=== PATIENT | male | born 1985 | race African-American/Black ===

== ENCOUNTER 2021-02-10 21:51 | Emergency (ER) | payer SELFPAY | END 2021-02-10 23:58 | disposition home or self-care (01) | LOC: CSHERS 21:51 | DX: L03.311 Cellulitis of abdominal wall (principal); E11.9 Type 2 diabetes mellitus without complications; E78.5 Hyperlipidemia, unspecified; I10 Essential (primary) hypertension; I25.10 Atherosclerotic heart disease of native coronary artery without angina pectoris; Z79.899 Other long term (current) drug therapy | CPT/HCPCS: 99282 ==

== ENCOUNTER 2021-11-27 22:55 | Inpatient (IN) | payer SELFPAY ==
[2021-11-27 23:48] LABS: #Basophils 0.1 10x3/uL (0.0-0.2); #Neutrophils 13.1 10x3/uL (1.5-8.4); %Basophils 0.3 % (0.0-2.0); %Lymphocytes 7.5 % (18.0-47.0); %Monocytes 6.3 % (0.0-10.0); %Neutrophils 85.4 % (40.0-75.0); Hemoglobin 8.2 g/dL (13.5-17.5); Mean Corpuscular HGB CONC 27.1 g/dL (32.0-36.0); Mean Platelet Volume 10.2 fl (7.4-10.4); Platelet Count 338 10x3/uL (150-450); RBC Distribution Width 18.4 % (11.5-14.5); Red Blood Cell (RBC) Count 4.81 10x6/uL (4.32-5.72); White Blood Cell (WBC) Count 15.3 10x3/uL (3.5-10.5)
[2021-11-28] LABS: ALT (SGPT) 13 U/L (8-55); AST (SGOT) 14 U/L (5-34); Albumin 3.9 g/dL (3.5-5.0); Alkaline Phosphatase 78 U/L (40-110); Anion Gap 16 mmol/L (10-20); BUN (Urea Nitrogen) 10 mg/dL (8.9-20.6); Bilirubin, Total 0.9 mg/dL (0.2-1.2); Calc. Creatinine Clearance 0 mL/min (70-130); Calcium 8.7 mg/dL (7.8-10.44); Carbon Dioxide 21 mmol/L (22-29); Chloride 103 mmol/L (98-107); Globulin 3.5 g/dL (2.4-3.5); Glucose 123 mg/dL (70-105); Potassium 3.9 mmol/L (3.5-5.1); Protein, Total 7.4 g/dL (6.0-8.3); Sodium 136 mmol/L (136-145)
[2021-11-28] MEDS ORDERED: Cefepime 2 GM VIAL ONE
[2021-11-28] MEDS ORDERED: Acetaminophen 325 MG TAB ONE
[2021-11-28 00:23] LABS: SARS-CoV-2 NAA Rapid Test Not Detected (NotDetected)
[2021-11-28 00:28] LABS: Platelet Morphology Comment Appears Adequate
[2021-11-28 00:30] LABS: Anisocytosis SLIGHT = 6-15 cells (100X) (0-5/hpf); Hypochromia SLIGHT = 6-15 cells (100X) (0-5/hpf); Macrocytosis SLIGHT = 6-15 cells (100X) (0-5/hpf); Microcytosis SLIGHT = 6-15 cells (100X) (0-5/hpf); Target Cells SLIGHT = 2-5 cells (100X) (0-1/hpf)
[2021-11-28 01:01] LABS: CKMB 1.6 ng/mL (0-6.6)
[2021-11-28 01:36] LABS: Bilirubin Neg (Negative); Blood, Urine Negative (Negative); Clarity Clear (Clear); Glucose, Urine (Dipstick) Normal (Negative); Ketone, Urine Negative (Negative); Leukocyte Negative (Negative); Nitrite Negative (Negative); Protein, Urine (Dipstick) 30 mg/dl (Neg-Trace); Specific Gravity, Urine 1.005 (1.002-1.036); Urobilinogen Normal mg/dL (Less than 2)
[2021-11-28 01:46] LABS: Bacteria/HPF None Seen HPF (None Seen); RBC/HPF 0-3 HPF (0-3); Squamous Epithelial 0-3 HPF (0-3); WBC/HPF 0-3 HPF (0-3)
[2021-11-28] MEDS ORDERED: Acetaminophen 325 MG TAB PO PRN (02:16)
[2021-11-28] MEDS ORDERED: HYDROcodone/Acetaminophen 5/325 mg Tablet PO PRN (02:16)
[2021-11-28] MEDS ORDERED: Senokot S 8.6-50 MG TAB PO PRN (02:16)
[2021-11-28] MEDS ORDERED: Calcium Carbonate 500 MG ChewTAB PO PRN (02:16)
[2021-11-28] MEDS ORDERED: Zolpidem Tartrate 5 MG TAB PO PRN (02:16)
[2021-11-28] MEDS ORDERED: Ondansetron PF 4 MG/2 ML Vial IVP PRN (02:16)
[2021-11-28] MEDS ORDERED: Enoxaparin Sodium 100 MG/ML SYRINGE ONE (02:24)
[2021-11-28 03:32] LABS: #Basophils 0.1 10x3/uL (0.0-0.2); #Eosinphils 0.1 10x3/uL (0.0-0.5); #Monocytes 1.3 10x3/uL (0.0-1.1); #Neutrophils 13.3 10x3/uL (1.5-8.4); %Basophils 0.3 % (0.0-2.0); %Eosinophils 0.8 % (0.0-6.0); %Lymphocytes 9.3 % (18.0-47.0); %Monocytes 8.1 % (0.0-10.0); %Neutrophils 80.7 % (40.0-75.0); Mean Corpuscular HGB CONC 28.1 g/dL (32.0-36.0); Mean Corpuscular Hemoglobin 17.6 pg (27.0-33.0); Mean Corpuscular Volume 62.8 fl (81.2-95.1); Mean Platelet Volume 9.4 fl (7.4-10.4); Platelet Count 312 10x3/uL (150-450); RBC Distribution Width 18.6 % (11.5-14.5); Red Blood Cell (RBC) Count 4.54 10x6/uL (4.32-5.72); White Blood Cell (WBC) Count 16.5 10x3/uL (3.5-10.5)
[2021-11-28 03:41] LABS: Anion Gap 15 mmol/L (10-20); BUN (Urea Nitrogen) 10 mg/dL (8.9-20.6); Calc. Creatinine Clearance 0 mL/min (70-130); Calcium 8.6 mg/dL (7.8-10.44); Carbon Dioxide 21 mmol/L (22-29); Chloride 104 mmol/L (98-107); Glucose 107 mg/dL (70-105); Potassium 3.6 mmol/L (3.5-5.1); Sodium 136 mmol/L (136-145)
[2021-11-28 03:41] LABS: CRP (Inflammatory) 5.38 mg/dL (= or < 0.5)
[2021-11-28] MEDS ORDERED: Nitroglycerin 2% Ointment 1 INCH/1 GM Packet TOP SCH (04:00)
[2021-11-28] MEDS ORDERED: Furosemide 20 MG/2 ML VIAL SLOW IVP SCH ×2 (04:00→08:30)
[2021-11-28 04:02] LABS: Platelet Morphology Comment Appears Adequate; Tear Drops SLIGHT = 2-5 cells (100X) (0-1/hpf)
[2021-11-28 04:03] LABS: Anisocytosis SLIGHT = 6-15 cells (100X) (0-5/hpf); Elliptocytes SLIGHT = 2-5 cells (100X) (0-1/hpf); Ferritin 21.94 ng/mL (22-322); Hypochromia MODERATE=16-30 cells (100X) (0-5/hpf); Macrocytosis SLIGHT = 6-15 cells (100X) (0-5/hpf); Microcytosis SLIGHT = 6-15 cells (100X) (0-5/hpf); Schistocytes SLIGHT = 2-5 cells (100X) (0-1/hpf); Target Cells SLIGHT = 2-5 cells (100X) (0-1/hpf); Thyroid Stimulating Hormone 0.9709 uIU/mL (0.35-4.94)
[2021-11-28 04:05] LABS: CKMB 1.2 ng/mL (0-6.6)
[2021-11-28 09:23] LABS: CKMB 1.2 ng/mL (0-6.6)
[2021-11-28] MEDS: Aspirin 81 mg Enteric Coated Tablet PO SCH (09:26)
[2021-11-28] MEDS: Lisinopril 10 MG TAB PO SCH (09:26)
[2021-11-28] MEDS: Carvedilol 25 MG TAB PO SCH ×2 (09:26→16:49)
[2021-11-28] MEDS: Furosemide 20 MG TAB PO SCH (09:26)
[2021-11-28] MEDS: Enoxaparin Sodium 40 MG/0.4 ML SYRINGE SC SCH (09:26)
[2021-11-28] MEDS ORDERED: Ferrous Sulfate 325 MG TAB PO SCH (09:30)
[2021-11-28] MEDS: Ferrous Sulfate 325 MG TAB PO SCH (16:49)
[2021-11-28] MEDS ORDERED: Atorvastatin Calcium 20 MG TAB PO SCH (21:00)
[2021-11-29 07:35] VITALS: BMI 39.5
[2021-11-29] MEDS: Ferrous Sulfate 325 MG TAB PO SCH (08:40)
[2021-11-29] MEDS: Aspirin 81 mg Enteric Coated Tablet PO SCH (08:40)
[2021-11-29] MEDS: Furosemide 20 MG TAB PO SCH (08:40)
[2021-11-29] MEDS: Lisinopril 10 MG TAB PO SCH (08:40)
[2021-11-29] MEDS: Enoxaparin Sodium 40 MG/0.4 ML SYRINGE SC SCH (08:40)
[2021-11-29] MEDS: Carvedilol 25 MG TAB PO SCH (08:40)
[2021-11-29 09:12] LABS: #Basophils 0.1 10x3/uL (0.0-0.2); #Eosinphils 0.1 10x3/uL (0.0-0.5); #Monocytes 1.3 10x3/uL (0.0-1.1); #Neutrophils 13.7 10x3/uL (1.5-8.4); %Basophils 0.3 % (0.0-2.0); %Eosinophils 0.7 % (0.0-6.0); %Lymphocytes 7.7 % (18.0-47.0); %Monocytes 7.7 % (0.0-10.0); %Neutrophils 83.1 % (40.0-75.0); Hemoglobin 7.7 g/dL (13.5-17.5); Mean Corpuscular HGB CONC 27.1 g/dL (32.0-36.0); Mean Corpuscular Hemoglobin 17.2 pg (27.0-33.0); Mean Corpuscular Volume 63.4 fl (81.2-95.1); Mean Platelet Volume 10.1 fl (7.4-10.4); Platelet Count 302 10x3/uL (150-450); RBC Distribution Width 18.8 % (11.5-14.5); Red Blood Cell (RBC) Count 4.48 10x6/uL (4.32-5.72); White Blood Cell (WBC) Count 16.5 10x3/uL (3.5-10.5)
[2021-11-29 09:26] LABS: Anion Gap 13 mmol/L (10-20); BUN (Urea Nitrogen) 17 mg/dL (8.9-20.6); Calc. Creatinine Clearance 118 mL/min (70-130); Calcium 8.9 mg/dL (7.8-10.44); Carbon Dioxide 24 mmol/L (22-29); Chloride 103 mmol/L (98-107); Glucose 113 mg/dL (70-105); Potassium 3.7 mmol/L (3.5-5.1); Sodium 136 mmol/L (136-145)
[2021-11-29 11:17] LABS: Anisocytosis SLIGHT = 6-15 cells (100X) (0-5/hpf)
[2021-11-29 11:18] LABS: Hypochromia SLIGHT = 6-15 cells (100X) (0-5/hpf); Large Platelets SLIGHT; Macrocytosis SLIGHT = 6-15 cells (100X) (0-5/hpf); Microcytosis SLIGHT = 6-15 cells (100X) (0-5/hpf); Platelet Morphology Comment Appears Adequate; Polychromasia SLIGHT = 2-3 cells (100X) (0-2/hpf); Reflex for Review?? YES
[2021-11-29 11:39] VITALS: BP 90/50; TEMP 96.9
== END 2021-11-29 14:11 | disposition home or self-care (01) | DRG 871 ==
LOC: CSHERS 22:55 → CSHERHOLD 11-28 03:00 → CSHTELE 11-28 07:48
PROVIDERS: ADMIT Student in an Organized Health Care Education/Training Program; ATTEND Hospitalist
DX: A41.9 Sepsis, unspecified organism (principal); I50.23 Acute on chronic systolic (congestive) heart failure; I42.8 Other cardiomyopathies; I13.0 Hypertensive heart and chronic kidney disease with heart failure and stage 1 through stage 4 chronic kidney disease, or unspecified chronic kidney disease; E78.5 Hyperlipidemia, unspecified; N18.2 Chronic kidney disease, stage 2 (mild); Z20.822 Contact with and (suspected) exposure to COVID-19; I16.0 Hypertensive urgency; D63.1 Anemia in chronic kidney disease; D50.9 Iron deficiency anemia, unspecified; E66.9 Obesity, unspecified; Z68.39 Body mass index [BMI] 39.0-39.9, adult; Z88.8 Allergy status to other drugs, medicaments and biological substances
CPT/HCPCS: 36415; 71045; 80048; 80053; 81003; 81015; 82553; 82728; 83540; 83550; 83605; 83880; 84145; 84443; 84484; 85025; 85060; 85652; 86140; 87040; 87081; 87086; 87430; 87633; 93005; 93306; 93970; 96372; 96374; 96375; J0692; J1650; J1940; J1956; J3370

== ENCOUNTER 2022-02-06 12:23 | Inpatient (IN) | payer SELFPAY ==
[2022-02-06] MEDS ORDERED: Ketorolac Tromethamine 30 MG/ML VIAL ONE (13:40)
[2022-02-06 13:53] LABS: #Monocytes 1.4 10x3/uL (0.0-1.1); #Neutrophils 6.8 10x3/uL (1.5-8.4); %Basophils 0.2 % (0.0-2.0); %Eosinophils 0.3 % (0.0-6.0); %Lymphocytes 14.1 % (18.0-47.0); %Monocytes 14.3 % (0.0-10.0); %Neutrophils 70.8 % (40.0-75.0); Mean Corpuscular HGB CONC 27.8 g/dL (32.0-36.0); Mean Corpuscular Hemoglobin 17.4 pg (27.0-33.0); Mean Corpuscular Volume 62.7 fl (81.2-95.1); Mean Platelet Volume 9.3 fl (7.4-10.4); Platelet Count 335 10x3/uL (150-450); RBC Distribution Width 17.5 % (11.5-14.5); Red Blood Cell (RBC) Count 4.02 10x6/uL (4.32-5.72); White Blood Cell (WBC) Count 9.5 10x3/uL (3.5-10.5)
[2022-02-06 14:02] LABS: ALT (SGPT) 20 U/L (8-55); AST (SGOT) 26 U/L (5-34); Albumin 3.6 g/dL (3.5-5.0); Alkaline Phosphatase 64 U/L (40-110); Anion Gap 14 mmol/L (10-20); BUN (Urea Nitrogen) 21 mg/dL (8.9-20.6); Bilirubin, Total 0.5 mg/dL (0.2-1.2); Calc. Creatinine Clearance 0 mL/min (70-130); Calcium 9.1 mg/dL (7.8-10.44); Carbon Dioxide 22 mmol/L (22-29); Chloride 101 mmol/L (98-107); Estimated GFR 44; Globulin 4.7 g/dL (2.4-3.5); Glucose 163 mg/dL (70-105); Lipase 65 U/L (8-78); Protein, Total 8.3 g/dL (6.0-8.3); Sodium 133 mmol/L (136-145)
[2022-02-06] MEDS ORDERED: Piperacillin/Tazobactam 4.5 GM VIAL ONE (17:35)
[2022-02-06] MEDS ORDERED: Pantoprazole 40 MG VIAL ONE (19:08)
[2022-02-06 20:33] LABS: SARS-CoV-2 NAA Rapid Test Not Detected (NotDetected)
[2022-02-06 20:53] VITALS: BMI 40.6
[2022-02-06] MEDS ORDERED: Ondansetron PF 4 MG/2 ML Vial IVP PRN (21:49)
[2022-02-06] MEDS ORDERED: Sodium Chloride 0.9% 1,000 ML IV SCH (22:00)
[2022-02-06] MEDS ORDERED: Potassium Chloride 20 MEQ in Lactated Ringer's 1,000 ML IV SCH (22:15)
[2022-02-06] MEDS ORDERED: Morphine 4 MG/ML VIAL SLOW IVP PRN (22:15)
[2022-02-06] MEDS ORDERED: HYDROcodone/Acetaminophen 7.5/325 mg Tablet PO PRN (22:15)
[2022-02-06] MEDS ORDERED: Ondansetron ODT 4 MG TAB PO PRN (22:15)
[2022-02-06 22:37] LABS: Iron 10 ug/dL (65-175); Iron Binding Capacity, Total 336 mcg/dL (261-462)
[2022-02-06] MEDS: Piperacillin/Tazobactam 3.375 GM in Sodium Chloride 0.9% 100 ML IVPB SCH (23:14)
[2022-02-06] MEDS: Acetaminophen 325 MG TAB PO PRN (23:14)
[2022-02-07 05:36] LABS: #Eosinphils 0.1 10x3/uL (0.0-0.5); #Neutrophils 5.8 10x3/uL (1.5-8.4); %Basophils 0.4 % (0.0-2.0); %Eosinophils 1.1 % (0.0-6.0); %Monocytes 11.6 % (0.0-10.0); %Neutrophils 68.5 % (40.0-75.0); Mean Corpuscular HGB CONC 27.1 g/dL (32.0-36.0); Mean Corpuscular Hemoglobin 18.2 pg (27.0-33.0); Mean Corpuscular Volume 67.2 fl (81.2-95.1); Platelet Count 307 10x3/uL (150-450); RBC Distribution Width 19.7 % (11.5-14.5); Red Blood Cell (RBC) Count 3.84 10x6/uL (4.32-5.72); White Blood Cell (WBC) Count 8.5 10x3/uL (3.5-10.5)
[2022-02-07 05:40] LABS: Anion Gap 12 mmol/L (10-20); BUN (Urea Nitrogen) 25 mg/dL (8.9-20.6); Calc. Creatinine Clearance 68 mL/min (70-130); Calcium 8.3 mg/dL (7.8-10.44); Carbon Dioxide 19 mmol/L (22-29); Chloride 109 mmol/L (98-107); Estimated GFR 36; Glucose 132 mg/dL (70-105); Magnesium 2.1 mg/dL (1.6-2.6); Potassium 4.3 mmol/L (3.5-5.1); Sodium 136 mmol/L (136-145)
[2022-02-07] MEDS ORDERED: Pantoprazole 40 MG VIAL IVP SCH (06:00)
[2022-02-07 06:15] LABS: Anisocytosis SLIGHT = 6-15 cells (100X) (0-5/hpf); Hypochromia MODERATE=16-30 cells (100X) (0-5/hpf); Microcytosis MODERATE=15-30 cells (100X) (0-5/hpf); Poikilocytosis SLIGHT = 6-15 cells (100X) (0-5/hpf)
[2022-02-07 06:16] LABS: Platelet Morphology Comment Appears Adequate
[2022-02-07] MEDS: Piperacillin/Tazobactam 3.375 GM in Sodium Chloride 0.9% 100 ML IVPB SCH ×3 (06:18→21:48)
[2022-02-07] MEDS: Ferrous Sulfate 325 MG TAB PO SCH ×2 (09:13→16:51)
[2022-02-07] MEDS: Lisinopril 20 MG TAB PO SCH (09:13)
[2022-02-07] MEDS: Carvedilol 25 MG TAB PO SCH (09:13)
[2022-02-07] MEDS: Furosemide 20 MG TAB PO SCH (09:13)
[2022-02-07] MEDS: Aspirin 81 mg Enteric Coated Tablet PO SCH (09:14)
[2022-02-07 15:10] LABS: Hemoglobin 7.1 g/dL (13.5-17.5)
[2022-02-07] MEDS ORDERED: GoLYTELY 4,000 ml Bottle PO SCH (20:00)
[2022-02-07] MEDS: Atorvastatin Calcium 20 MG TAB PO SCH (20:17)
[2022-02-08] MEDS: Piperacillin/Tazobactam 3.375 GM in Sodium Chloride 0.9% 100 ML IVPB SCH ×3 (06:19→20:51)
[2022-02-08] MEDS: Ferrous Sulfate 325 MG TAB PO SCH ×2 (08:21→17:55)
[2022-02-08] MEDS: Lisinopril 20 MG TAB PO SCH (08:21)
[2022-02-08] MEDS: Carvedilol 25 MG TAB PO SCH (08:21)
[2022-02-08] MEDS: Aspirin 81 mg Enteric Coated Tablet PO SCH (08:22)
[2022-02-08] MEDS: Furosemide 20 MG TAB PO SCH (08:22)
[2022-02-08] MEDS: Acetaminophen 325 MG TAB PO PRN (20:52)
[2022-02-08] MEDS: Atorvastatin Calcium 20 MG TAB PO SCH (21:00)
[2022-02-09] MEDS: Piperacillin/Tazobactam 3.375 GM in Sodium Chloride 0.9% 100 ML IVPB SCH (06:10)
[2022-02-09] MEDS ORDERED: Sodium Chloride 0.9% 1,000 ML IV SCH (08:45)
[2022-02-09 09:10] LABS: #Basophils 0.1 10x3/uL (0.0-0.2); #Eosinphils 0.2 10x3/uL (0.0-0.5); #Monocytes 0.5 10x3/uL (0.0-1.1); #Neutrophils 5.8 10x3/uL (1.5-8.4); %Basophils 0.9 % (0.0-2.0); %Eosinophils 2.1 % (0.0-6.0); %Monocytes 6.4 % (0.0-10.0); %Neutrophils 71.1 % (40.0-75.0); Hemoglobin 7.6 g/dL (13.5-17.5); Mean Corpuscular HGB CONC 27.2 g/dL (32.0-36.0); Mean Corpuscular Hemoglobin 18.1 pg (27.0-33.0); Mean Corpuscular Volume 66.6 fl (81.2-95.1); Mean Platelet Volume 9.8 fl (7.4-10.4); Platelet Count 351 10x3/uL (150-450); RBC Distribution Width 19.9 % (11.5-14.5); Red Blood Cell (RBC) Count 4.19 10x6/uL (4.32-5.72); White Blood Cell (WBC) Count 8.2 10x3/uL (3.5-10.5)
[2022-02-09] MEDS: Furosemide 20 MG TAB PO SCH (09:18)
[2022-02-09] MEDS: Carvedilol 25 MG TAB PO SCH (09:18)
[2022-02-09] MEDS: Ferrous Sulfate 325 MG TAB PO SCH ×2 (09:18→17:05)
[2022-02-09] MEDS: Aspirin 81 mg Enteric Coated Tablet PO SCH (09:18)
[2022-02-09 09:30] LABS: Anion Gap 12 mmol/L (10-20); BUN (Urea Nitrogen) 11 mg/dL (8.9-20.6); Calc. Creatinine Clearance 109 mL/min (70-130); Calcium 9.1 mg/dL (7.8-10.44); Carbon Dioxide 20 mmol/L (22-29); Chloride 108 mmol/L (98-107); Estimated GFR 64; Glucose 107 mg/dL (70-105); Potassium 4.1 mmol/L (3.5-5.1); Sodium 136 mmol/L (136-145)
[2022-02-09 09:32] LABS: Platelet Morphology Comment Appears Adequate
[2022-02-09 09:34] LABS: Anisocytosis SLIGHT = 6-15 cells (100X) (0-5/hpf); Basophilic Stippling SLIGHT = 1-2 cells (100X) (None Seen); Elliptocytes SLIGHT = 2-5 cells (100X) (0-1/hpf); Hypochromia SLIGHT = 6-15 cells (100X) (0-5/hpf); Macrocytosis SLIGHT = 6-15 cells (100X) (0-5/hpf); Microcytosis SLIGHT = 6-15 cells (100X) (0-5/hpf); Polychromasia SLIGHT = 2-3 cells (100X) (0-2/hpf); Schistocytes SLIGHT = 2-5 cells (100X) (0-1/hpf); Target Cells SLIGHT = 2-5 cells (100X) (0-1/hpf)
[2022-02-09 16:14] LABS: Hemoglobin A2 2.2 % (1.8-3.2); Hemoglobin F 0 % (0.0-2.0)
[2022-02-09] MEDS: Acetaminophen 325 MG TAB PO PRN (21:31)
[2022-02-09] MEDS: Atorvastatin Calcium 20 MG TAB PO SCH (21:31)
[2022-02-10 04:56] LABS: #Basophils 0.1 10x3/uL (0.0-0.2); #Eosinphils 0.3 10x3/uL (0.0-0.5); #Monocytes 0.9 10x3/uL (0.0-1.1); #Neutrophils 6.9 10x3/uL (1.5-8.4); %Basophils 0.5 % (0.0-2.0); %Eosinophils 2.8 % (0.0-6.0); %Lymphocytes 19.9 % (18.0-47.0); %Monocytes 8.6 % (0.0-10.0); %Neutrophils 67.6 % (40.0-75.0); Hemoglobin 7.4 g/dL (13.5-17.5); Mean Corpuscular HGB CONC 28.1 g/dL (32.0-36.0); Mean Corpuscular Hemoglobin 18.2 pg (27.0-33.0); Mean Corpuscular Volume 64.8 fl (81.2-95.1); Platelet Count 376 10x3/uL (150-450); RBC Distribution Width 20.1 % (11.5-14.5); Red Blood Cell (RBC) Count 4.06 10x6/uL (4.32-5.72); White Blood Cell (WBC) Count 10.1 10x3/uL (3.5-10.5)
[2022-02-10 04:57] LABS: Anion Gap 14 mmol/L (10-20); BUN (Urea Nitrogen) 7 mg/dL (8.9-20.6); Calc. Creatinine Clearance 125 mL/min (70-130); Calcium 8.9 mg/dL (7.8-10.44); Carbon Dioxide 20 mmol/L (22-29); Chloride 108 mmol/L (98-107); Estimated GFR 75; Glucose 80 mg/dL (70-105); Potassium 3.9 mmol/L (3.5-5.1); Sodium 138 mmol/L (136-145)
[2022-02-10 06:03] LABS: Anisocytosis SLIGHT = 6-15 cells (100X) (0-5/hpf); Hypochromia SLIGHT = 6-15 cells (100X) (0-5/hpf); Microcytosis SLIGHT = 6-15 cells (100X) (0-5/hpf); Polychromasia SLIGHT = 2-3 cells (100X) (0-2/hpf); Target Cells SLIGHT = 2-5 cells (100X) (0-1/hpf)
[2022-02-10 06:04] LABS: Platelet Morphology Comment Appears Adequate
[2022-02-10] MEDS: Ferrous Sulfate 325 MG TAB PO SCH ×2 (09:29→18:36)
[2022-02-10] MEDS: Aspirin 81 mg Enteric Coated Tablet PO SCH (09:29)
[2022-02-10] MEDS: Furosemide 20 MG TAB PO SCH (09:29)
[2022-02-10] MEDS: Carvedilol 25 MG TAB PO SCH (09:29)
[2022-02-10] MEDS: Lisinopril 20 MG TAB PO SCH (09:30)
[2022-02-10] MEDS ORDERED: Iron, Sodium Ferric Gluconate 125 MG in Sodium Chloride 0.9% 100 ML IVPB SCH (09:45)
[2022-02-10] MEDS: Neomycin 500 mg Tablet PO SCH ×3 (15:50→20:14)
[2022-02-10] MEDS: Erythromycin Base 250 MG TAB PO SCH ×3 (15:51→20:14)
[2022-02-10] MEDS: Atorvastatin Calcium 20 MG TAB PO SCH (20:14)
[2022-02-11 00:18] VITALS: BP 146/99; TEMP 97.4
== END 2022-02-11 01:00 | disposition short-term general hospital (02) | DRG 392 ==
LOC: CSHERS 12:23 → CSHTELE 20:44
PROVIDERS: ADMIT Family Medicine; ATTEND Internal Medicine
PROC: 30233N1 Transfusion of Nonautologous Red Blood Cells into Peripheral Vein, Percutaneous Approach (ICD-10-PCS; principal; 2022-02-06)
PROC: 0DB98ZX Excision of Duodenum, Via Natural or Artificial Opening Endoscopic, Diagnostic (ICD-10-PCS; 2022-02-08)
PROC: 0DB68ZX Excision of Stomach, Via Natural or Artificial Opening Endoscopic, Diagnostic (ICD-10-PCS; 2022-02-08)
PROC: 0DBM8ZX Excision of Descending Colon, Via Natural or Artificial Opening Endoscopic, Diagnostic (ICD-10-PCS; 2022-02-08)
DX: K52.9 Noninfective gastroenteritis and colitis, unspecified (principal); I50.42 Chronic combined systolic (congestive) and diastolic (congestive) heart failure; Z68.41 Body mass index [BMI] 40.0-44.9, adult; I42.8 Other cardiomyopathies; I13.0 Hypertensive heart and chronic kidney disease with heart failure and stage 1 through stage 4 chronic kidney disease, or unspecified chronic kidney disease; Z20.822 Contact with and (suspected) exposure to COVID-19; D50.9 Iron deficiency anemia, unspecified; K29.70 Gastritis, unspecified, without bleeding; E66.01 Morbid (severe) obesity due to excess calories; N18.9 Chronic kidney disease, unspecified; K63.89 Other specified diseases of intestine; E78.5 Hyperlipidemia, unspecified; Z79.82 Long term (current) use of aspirin; Z79.899 Other long term (current) drug therapy; Z82.49 Family history of ischemic heart disease and other diseases of the circulatory system
CPT/HCPCS: 36415; 36430; 74176; 80048; 80053; 82274; 82378; 82728; 83021; 83540; 83550; 83605; 83690; 83735; 85025; 86850; 86900; 86901; 87040; 88305; 88342; 93005; 93010; 96361; 96374; 96375; C9113; J1885; J2543; J2916; J3490; J7050; P9016; Q0162; U0002

== ENCOUNTER 2022-02-28 13:37 | Outpatient (CLI) | payer SELFPAY | END 2022-02-28 13:38 | disposition home or self-care (01) | LOC: CSHWCC 13:37 | PROVIDERS: ATTEND Nurse Practitioner Family | DX: L89.323 Pressure ulcer of left buttock, stage 3 (principal); T81.89XD Other complications of procedures, not elsewhere classified, subsequent encounter | CPT/HCPCS: 97605; 99203; G0463 ==

== ENCOUNTER 2022-03-02 09:35 | Outpatient (CLI) | payer SELFPAY | END 2022-03-02 09:36 | disposition home or self-care (01) | LOC: CSHWCC 09:35 | PROVIDERS: ATTEND Preventive Medicine Undersea and Hyperbaric Medicine | DX: T81.89XD Other complications of procedures, not elsewhere classified, subsequent encounter (principal); L89.323 Pressure ulcer of left buttock, stage 3 | CPT/HCPCS: 97605 ==

== ENCOUNTER 2022-03-06 08:59 | Outpatient (CLI) | payer SELFPAY | END 2022-03-06 09:00 | disposition home or self-care (01) | LOC: CSHWCC 08:59 | PROVIDERS: ATTEND Preventive Medicine Undersea and Hyperbaric Medicine | DX: L89.323 Pressure ulcer of left buttock, stage 3 (principal); T81.89XD Other complications of procedures, not elsewhere classified, subsequent encounter | CPT/HCPCS: 97605 ==

== ENCOUNTER 2022-03-09 09:54 | Outpatient (CLI) | payer OTHER | END 2022-03-09 09:55 | disposition home or self-care (01) | LOC: CSHWCC 09:54 | PROVIDERS: ATTEND Nurse Practitioner Family | DX: T81.89XD Other complications of procedures, not elsewhere classified, subsequent encounter (principal); L89.323 Pressure ulcer of left buttock, stage 3 ==

== ENCOUNTER 2022-03-13 08:51 | Outpatient (CLI) | payer OTHER | END 2022-03-13 08:52 | disposition home or self-care (01) | LOC: CSHWCC 08:51 | PROVIDERS: ATTEND Nurse Practitioner Family | DX: T81.89XD Other complications of procedures, not elsewhere classified, subsequent encounter (principal); L89.323 Pressure ulcer of left buttock, stage 3 | CPT/HCPCS: 97605 ==

== ENCOUNTER 2022-03-16 09:04 | Outpatient (CLI) | payer OTHER | END 2022-03-16 09:05 | disposition home or self-care (01) | LOC: CSHWCC 09:04 | PROVIDERS: ATTEND Preventive Medicine Undersea and Hyperbaric Medicine | DX: L89.323 Pressure ulcer of left buttock, stage 3 (principal); T81.89XD Other complications of procedures, not elsewhere classified, subsequent encounter | CPT/HCPCS: 97605 ==

== ENCOUNTER 2022-03-20 08:27 | Outpatient (CLI) | payer OTHER | END 2022-03-20 08:28 | disposition home or self-care (01) | LOC: CSHWCC 08:27 | PROVIDERS: ATTEND Preventive Medicine Undersea and Hyperbaric Medicine | DX: L89.323 Pressure ulcer of left buttock, stage 3 (principal); T81.89XD Other complications of procedures, not elsewhere classified, subsequent encounter | CPT/HCPCS: 97605 ==

== ENCOUNTER 2022-03-23 09:01 | Outpatient (CLI) | payer OTHER | END 2022-03-23 09:02 | disposition home or self-care (01) | LOC: CSHWCC 09:01 | PROVIDERS: ATTEND Preventive Medicine Undersea and Hyperbaric Medicine | DX: L89.323 Pressure ulcer of left buttock, stage 3 (principal); T81.89XD Other complications of procedures, not elsewhere classified, subsequent encounter | CPT/HCPCS: 97605 ==

== ENCOUNTER 2022-03-29 08:46 | Outpatient (CLI) | payer OTHER | END 2022-03-29 08:47 | disposition home or self-care (01) | LOC: CSHWCC 08:46 | PROVIDERS: ATTEND Preventive Medicine Undersea and Hyperbaric Medicine | DX: T81.89XD Other complications of procedures, not elsewhere classified, subsequent encounter (principal); L89.323 Pressure ulcer of left buttock, stage 3 | CPT/HCPCS: 97605; 99212; G0463 ==

== ENCOUNTER 2022-04-03 11:23 | Outpatient (CLI) | payer OTHER | END 2022-04-03 11:24 | disposition home or self-care (01) | LOC: CSHWCC 11:23 | PROVIDERS: ATTEND Preventive Medicine Undersea and Hyperbaric Medicine | DX: L89.323 Pressure ulcer of left buttock, stage 3 (principal); T81.89XD Other complications of procedures, not elsewhere classified, subsequent encounter | CPT/HCPCS: 97605 ==

== ENCOUNTER 2022-04-06 10:00 | Outpatient (CLI) | payer OTHER | END 2022-04-06 10:01 | disposition home or self-care (01) | LOC: CSHWCC 10:00 | PROVIDERS: ATTEND Preventive Medicine Undersea and Hyperbaric Medicine | DX: L89.323 Pressure ulcer of left buttock, stage 3 (principal); T81.89XD Other complications of procedures, not elsewhere classified, subsequent encounter ==

== ENCOUNTER 2022-04-09 08:41 | Outpatient (CLI) | payer OTHER | END 2022-04-09 08:42 | disposition home or self-care (01) | LOC: CSHWCC 08:41 | PROVIDERS: ATTEND Preventive Medicine Undersea and Hyperbaric Medicine | DX: T81.89XD Other complications of procedures, not elsewhere classified, subsequent encounter (principal) | CPT/HCPCS: 99213; G0463 ==

== ENCOUNTER 2022-04-16 10:02 | Outpatient (CLI) | payer OTHER | END 2022-04-16 10:03 | disposition home or self-care (01) | LOC: CSHWCC 10:02 | PROVIDERS: ATTEND Preventive Medicine Undersea and Hyperbaric Medicine | DX: T81.89XD Other complications of procedures, not elsewhere classified, subsequent encounter (principal) | CPT/HCPCS: 99212; G0463 ==

== ENCOUNTER 2022-04-30 09:27 | Outpatient (CLI) | payer OTHER, SELFPAY | END 2022-04-30 09:28 | disposition home or self-care (01) | LOC: CSHWCC 09:27 | PROVIDERS: ATTEND Nurse Practitioner Family | DX: T81.89XD Other complications of procedures, not elsewhere classified, subsequent encounter (principal) | CPT/HCPCS: 99212; G0463 ==

== ENCOUNTER 2023-05-09 16:25 | Inpatient (IN) | payer BC, OTHER ==
[2023-05-09 18:02] LABS: #Eosinphils 0.1 10x3/uL (0.0-0.5); #Monocytes 0.4 10x3/uL (0.0-1.1); #Neutrophils 4.5 10x3/uL (1.5-8.4); %Basophils 0.6 % (0.0-2.0); %Eosinophils 1.2 % (0.0-6.0); %Lymphocytes 23.3 % (18.0-47.0); %Monocytes 6.3 % (0.0-10.0); %Neutrophils 68.3 % (40.0-75.0); Hematocrit 38.6 % (38.8-50.0); Hemoglobin 11.8 g/dL (13.5-17.5); Mean Corpuscular HGB CONC 30.6 g/dL (32.0-36.0); Mean Corpuscular Hemoglobin 22.8 pg (27.0-33.0); Mean Corpuscular Volume 74.7 fl (81.2-95.1); Mean Platelet Volume 10.1 fl (7.4-10.4); Platelet Count 307 10x3/uL (150-450); RBC Distribution Width 17.8 % (11.5-14.5); Red Blood Cell (RBC) Count 5.17 10x6/uL (4.32-5.72); White Blood Cell (WBC) Count 6.5 10x3/uL (3.5-10.5)
[2023-05-09 18:09] LABS: ALT (SGPT) 17 U/L (8-55); AST (SGOT) 20 U/L (5-34); Albumin 3.1 g/dL (3.5-5.0); Alkaline Phosphatase 69 U/L (40-110); Anion Gap 13 mmol/L (10-20); BUN (Urea Nitrogen) 21 mg/dL (8.9-20.6); Bilirubin, Total 0.6 mg/dL (0.2-1.2); Calc. Creatinine Clearance 0 mL/min (70-130); Calcium 8.2 mg/dL (7.8-10.44); Carbon Dioxide 21 mmol/L (22-29); Chloride 104 mmol/L (98-107); Estimated GFR 52; Globulin 3.9 g/dL (2.4-3.5); Glucose 228 mg/dL (70-105); Potassium 4.1 mmol/L (3.5-5.1); Sodium 134 mmol/L (136-145)
[2023-05-09 18:14] LABS: Troponin I 0.089 ng/mL (< 0.028)
[2023-05-09] MEDS ORDERED: Furosemide 40 MG/4 ML VIAL ONE ×2 (18:58→21:14)
[2023-05-09] MEDS ORDERED: Aspirin 325 MG TAB ONE (18:59)
[2023-05-09] MEDS ORDERED: Aspirin Chewable 81 MG TAB ONE (19:01)
[2023-05-09] MEDS ORDERED: hydrALAZINE 20 MG/ML VIAL ONE (19:17)
[2023-05-09] MEDS ORDERED: Nitroglycerin 2% Ointment 1 INCH/1 GM Packet ONE (19:26)
[2023-05-09] MEDS ORDERED: Glucagon 1 MG/ML KIT IM PRN (19:36)
[2023-05-09] MEDS ORDERED: Dextrose 5% in Water 1,000 ML IV PRN (19:36)
[2023-05-09] MEDS ORDERED: Dextrose 50% Abboject 50 ML SYRINGE SLOW IVP PRN (19:36)
[2023-05-09] MEDS ORDERED: Ondansetron PF 4 MG/2 ML Vial IVP PRN (19:37)
[2023-05-09] MEDS ORDERED: Senokot S 8.6-50 MG TAB PO PRN (19:37)
[2023-05-09] MEDS ORDERED: Zolpidem Tartrate 5 MG TAB PO PRN (19:37)
[2023-05-09] MEDS ORDERED: Acetaminophen 325 MG TAB PO PRN (19:37)
[2023-05-09] MEDS ORDERED: Guaifenesin DM 100-10/5 ML UDCUP PO PRN (19:37)
[2023-05-09] MEDS ORDERED: Calcium Carbonate 500 MG ChewTAB PO PRN (19:37)
[2023-05-09] MEDS ORDERED: HumaLOG 300 UNITS/3 ML VIAL SC PRN (19:37)
[2023-05-09] MEDS ORDERED: hydrALAZINE 20 MG/ML VIAL SLOW IVP PRN (19:40)
[2023-05-09] MEDS ORDERED: Furosemide 40 MG/4 ML VIAL SLOW IVP SCH ×2 (19:45→21:15)
[2023-05-09] MEDS ORDERED: hydrALAZINE 25 MG TAB ONE (21:15)
[2023-05-09] MEDS ORDERED: Carvedilol 6.25 MG TAB PO SCH (21:15)
[2023-05-09] MEDS ORDERED: Carvedilol 6.25 MG TAB ONE (21:16)
[2023-05-09] MEDS ORDERED: Atorvastatin Calcium 10 MG TAB ONE (21:16)
[2023-05-09] MEDS: hydrALAZINE 25 MG TAB PO SCH (21:24)
[2023-05-09] MEDS: Atorvastatin Calcium 20 MG TAB PO SCH (21:25)
[2023-05-09 23:17] LABS: Troponin I 0.086 ng/mL (< 0.028)
[2023-05-10 02:51] LABS: Bilirubin Neg (Negative); Blood, Urine Negative (Negative); Clarity Clear (Clear); Glucose, Urine (Dipstick) Normal (Negative); Ketone, Urine Negative (Negative); Leukocyte Negative (Negative); Nitrite Negative (Negative); Protein, Urine (Dipstick) 15 mg/dl (Neg-Trace); Urobilinogen Normal mg/dL (Less than 2)
[2023-05-10 03:25] LABS: Bacteria/HPF Rare-Few HPF (None Seen); RBC/HPF None Seen HPF (0-3); Squamous Epithelial None Seen HPF (0-3); WBC/HPF 0-3 HPF (0-3)
[2023-05-10 04:39] LABS: Anion Gap 14 mmol/L (10-20); BUN (Urea Nitrogen) 19 mg/dL (8.9-20.6); Calc. Creatinine Clearance 0 mL/min (70-130); Calcium 8.4 mg/dL (7.8-10.44); Carbon Dioxide 24 mmol/L (22-29); Chloride 105 mmol/L (98-107); Estimated GFR 61; Glucose 186 mg/dL (70-105); Potassium 4.3 mmol/L (3.5-5.1); Sodium 139 mmol/L (136-145)
[2023-05-10] MEDS ORDERED: Furosemide 40 MG/4 ML VIAL ONE (05:52)
[2023-05-10] MEDS: Furosemide 40 MG/4 ML VIAL SLOW IVP SCH ×2 (05:59→14:30)
[2023-05-10 10:15] VITALS: BMI 40.8
[2023-05-10] MEDS: Isosorbide Mononitrate 30 MG ER.TAB PO SCH (10:59)
[2023-05-10] MEDS: Multivitamin W/ Minerals 1 TAB PO SCH (10:59)
[2023-05-10] MEDS: metFORMIN 500 MG TAB PO SCH ×2 (10:59→17:42)
[2023-05-10] MEDS: Ferrous Sulfate 325 MG TAB PO SCH (11:02)
[2023-05-10] MEDS: Alogliptin 6.25 MG TAB PO SCH (11:04)
[2023-05-10] MEDS: hydrALAZINE 25 MG TAB PO SCH ×3 (11:04→21:10)
[2023-05-10] MEDS: Carvedilol 25 MG TAB PO SCH ×2 (11:07→17:41)
[2023-05-10 13:33] LABS: Hemoglobin A1c 10.4 % (4.0-6.0)
[2023-05-10] MEDS ORDERED: HumaLOG 300 UNITS/3 ML VIAL SC PRN (20:02)
[2023-05-10] MEDS: Atorvastatin Calcium 20 MG TAB PO SCH (21:10)
[2023-05-11 06:14] LABS: #Eosinphils 0.1 10x3/uL (0.0-0.5); #Monocytes 0.5 10x3/uL (0.0-1.1); #Neutrophils 5.2 10x3/uL (1.5-8.4); %Basophils 0.5 % (0.0-2.0); %Eosinophils 1.5 % (0.0-6.0); %Monocytes 6.3 % (0.0-10.0); %Neutrophils 69.4 % (40.0-75.0); Hematocrit 38.1 % (38.8-50.0); Hemoglobin 11.8 g/dL (13.5-17.5); Mean Corpuscular Hemoglobin 22.8 pg (27.0-33.0); Mean Corpuscular Volume 73.6 fl (81.2-95.1); Mean Platelet Volume 9.4 fl (7.4-10.4); Platelet Count 317 10x3/uL (150-450); RBC Distribution Width 18.2 % (11.5-14.5); Red Blood Cell (RBC) Count 5.18 10x6/uL (4.32-5.72); White Blood Cell (WBC) Count 7.5 10x3/uL (3.5-10.5)
[2023-05-11 06:16] LABS: Anion Gap 14 mmol/L (10-20); BUN (Urea Nitrogen) 24 mg/dL (8.9-20.6); Calc. Creatinine Clearance 97 mL/min (70-130); Calcium 8.5 mg/dL (7.8-10.44); Carbon Dioxide 23 mmol/L (22-29); Chloride 104 mmol/L (98-107); Estimated GFR 55; Glucose 162 mg/dL (70-105); Potassium 3.9 mmol/L (3.5-5.1); Sodium 137 mmol/L (136-145)
[2023-05-11 06:20] LABS: Troponin I 0.077 ng/mL (< 0.028)
[2023-05-11 06:46] LABS: Hypochromia SLIGHT = 6-15 cells (100X) (0-5/hpf); Microcytosis SLIGHT = 6-15 cells (100X) (0-5/hpf)
[2023-05-11 06:47] LABS: Platelet Adequacy Comment Appears Adequate
[2023-05-11] MEDS: Furosemide 40 MG/4 ML VIAL SLOW IVP SCH (08:09)
[2023-05-11] MEDS: metFORMIN 500 MG TAB PO SCH (08:09)
[2023-05-11] MEDS: hydrALAZINE 25 MG TAB PO SCH (08:09)
[2023-05-11] MEDS: Ferrous Sulfate 325 MG TAB PO SCH (08:10)
[2023-05-11] MEDS: Multivitamin W/ Minerals 1 TAB PO SCH (08:10)
[2023-05-11] MEDS: Carvedilol 25 MG TAB PO SCH (08:10)
[2023-05-11] MEDS: Alogliptin 6.25 MG TAB PO SCH (08:10)
[2023-05-11] MEDS: Isosorbide Mononitrate 30 MG ER.TAB PO SCH (08:10)
[2023-05-11] MEDS ORDERED: FLU VACC QS2023-24(6MOS UP)/PF 60 MCG/0.5 ML SYRINGE IM ONE (09:00)
[2023-05-11] MEDS ORDERED: Lisinopril 20 MG TAB PO SCH (09:30)
[2023-05-11 10:53] VITALS: BP 134/75
[2023-05-11 13:04] VITALS: TEMP 97.9
[2023-05-11] MEDS ORDERED: Furosemide 40 MG TAB PO SCH (14:00)
[2023-05-12] MEDS ORDERED: Lisinopril 20 MG TAB PO SCH (09:00)
== END 2023-05-11 14:30 | disposition home or self-care (01) | DRG 292 ==
LOC: CSHERS 16:25 → CSHERHOLD 19:10 → CSHTELE 05-10 09:38
PROVIDERS: ADMIT Student in an Organized Health Care Education/Training Program; ATTEND Internal Medicine
DX: I50.43 Acute on chronic combined systolic (congestive) and diastolic (congestive) heart failure (principal); I16.9 Hypertensive crisis, unspecified; N17.9 Acute kidney failure, unspecified; I24.89 Other forms of acute ischemic heart disease; Z68.41 Body mass index [BMI] 40.0-44.9, adult; I42.8 Other cardiomyopathies; I48.91 Unspecified atrial fibrillation; E78.5 Hyperlipidemia, unspecified; I25.10 Atherosclerotic heart disease of native coronary artery without angina pectoris; N18.2 Chronic kidney disease, stage 2 (mild); E11.22 Type 2 diabetes mellitus with diabetic chronic kidney disease; I12.9 Hypertensive chronic kidney disease with stage 1 through stage 4 chronic kidney disease, or unspecified chronic kidney disease; D64.9 Anemia, unspecified; E66.9 Obesity, unspecified; Z79.899 Other long term (current) drug therapy; Z90.49 Acquired absence of other specified parts of digestive tract
CPT/HCPCS: 36415; 36416; 71045; 76770; 80048; 80053; 81001; 83036; 83880; 84443; 84484; 85025; 90471; 90686; 93005; 93306; 96374; 96375; G0008; J0360; J1650; J1940